=== PATIENT | male | born 1985 | race African-American/Black ===

== ENCOUNTER 2018-01-10 23:16 | Emergency (ER) | payer SELFPAY ==
[~2018-01-10] VITALS: Ht 188 cm; Wt 96.3 kg
[2018-01-10] MEDS ORDERED: ACETAMINOPHEN 500 MG TABLET ONE (23:48)
[2018-01-11] MEDS ORDERED: ACETAMINOPHEN 500 MG TABLET PO ONE
[2018-01-11 00:06] LABS: MD YES; MEAN CORPUSCULAR HEMOGLOBIN 28.5 pg (27.5-34.5); MEAN CORPUSCULAR HGB CONC 33.2 g/dL (33.2-36.2); MEAN CORPUSCULAR VOLUME 85.8 fL (81-97); MEAN PLATELET VOLUME 8.3 fL (7.4-10.4); PLATELET COUNT 227 x10^3/uL (130-400); RED BLOOD COUNT 4.95 x10^6/uL (4.38-5.82); RED CELL DISTRIBUTION WIDTH 13.2 % (9.4-14.8)
[2018-01-11 00:14] LABS: ALBUMIN 3.8 g/dL (3.4-5.0); ANION GAP 0 mmol/L (5-15); CALCIUM 8.9 mg/dL (8.5-10.1); CHLORIDE 105 mmol/L (98-107)
[2018-01-11 00:16] LABS: ALANINE AMINOTRANSFERASE 66 U/L (12-78); ALKALINE PHOSPHATASE 112 U/L (45-117); BASOS#(MANUAL) 0.06 x10^3/uL (0-0.1); BASOS% (MANUAL) 1 % (0-1); BILIRUBIN,TOTAL 0.5 mg/dL (0.2-1.0); CREATININE 1.21 mg/dL (0.7-1.3); LYMPH#(MANUAL) 2.54 x10^3/uL (1-3.4); LYMPHS% (MANUAL) 41 % (22-44); MONOS#(MANUAL) 0.43 x10^3/uL (0.3-2.7); MONOS% (MANUAL) 7 % (2-9); SEG#(MANUAL) 3.16 x10^3/uL (1.8-6.8); SEGS% (MANUAL) 51 % (42-75)
[2018-01-11 00:17] LABS: <PLATELET ESTIMATE> ADEQUATE; <PLT MORPHOLOGY> NORMAL PLT MORPH; <RBC MORPHOLOGY> NORMAL
[2018-01-11 00:24] LABS: CULTURE INDICATED? YES; MICROSCOPIC INDICATED
[2018-01-11 01:13] VITALS: BP 116/62
== END 2018-01-11 01:20 | disposition home or self-care (01) ==
LOC: ED 01-11 01:17
DX: N34.1 Nonspecific urethritis (principal); R10.84 Generalized abdominal pain
CPT/HCPCS: 36415; 80053; 81001; 83690; 85025; 87086; 87491; 87591; 93005; 99285

== ENCOUNTER 2020-11-09 22:28 | Emergency (ER) | payer SELFPAY ==
[~2020-11-09] VITALS: Ht 177.8 cm; Wt 95.5 kg
[2020-11-09 22:37] VITALS: BP 131/89
--- NOTE | 2020-11-09 22:43 | NUR ---
pt brought in by [facility] officers, officers stated he was put on a legal hold at the detention, when this RN asked pt why he was on a legal hold pt laughed and stated, "i told them ill kill myself if i dont use the phone", for that statement pt was put on a legal hold, pt denies any kind of SI or SH at this time
--- NOTE | 2020-11-09 23:10 | NUR ---
pt taken off of legal hold by ER doctor, pt denies any suicidal ideation at this time, pt to be discharged home, in parking lot to pick pt up
== END 2020-11-09 23:12 | disposition home or self-care (01) ==
LOC: ED 22:45
DX: R45.851 Suicidal ideations (principal); F17.210 Nicotine dependence, cigarettes, uncomplicated
CPT/HCPCS: 99406